=== PATIENT | female | born 1990 | race Two or more races ===

== ENCOUNTER 2019-05-13 22:42 | Emergency (ER) | payer MEDICAID ==
[~2019-05-13] VITALS: Ht 157.5 cm; Wt 74.8 kg
--- NOTE | 2019-05-13 23:12 | NUR ---
ED Nurse Note: Pt walked in c/o R fourth toe pain, pt reports she hit her toe really hard on the wall this moring. cms intact, cap refill <3sec. noted bruising and tenderness on the toe, will cont monitor.
[2019-05-14] MEDS ORDERED: IBUPROFEN600 MG ORAL (00:05)
[2019-05-14] MEDS ORDERED: HYDROCODON-ACE1 EA15 ORAL (00:05)
--- NOTE | 2019-05-14 00:05 | Emergency Room Report ---
History of Present Illness General Chief Complaint: Lower Extremity Injury Source: Patient Present Illness HPI This is a 28-year-old female with no past medical history. She presents with chief complaint of toe pain. She was in a lara to go to work today and she stopped her toe against the wall. It was hurting all day at work. When she went home she noticed her right fourth toe is black and blue. Worse with walking. Better with rest. Pain is throbbing in nature. 8 out of 10. Denies any other complaint. No other injury. Allergies: Coded Allergies: No Known Allergies (Unverified , 05/13/19) Patient History Past Medical History: see triage record, old chart reviewed Past Surgical History: none Pertinent Family History: none Social History: Denies: smoking Last Menstrual Period: 05-02-2019 Now: No Immunizations: other Reviewed Nursing Documentation: PMH: Agreed; PSxH: Agreed Nursing Documentation-PMH Past Medical History: No Stated History Review of Systems Eye: Denies: eye pain, blurred vision ENT: Denies: ear pain, nose congestion, throat swelling Respiratory: Denies: cough, shortness of breath Cardiovascular: Denies: chest pain, palpitations Gastrointestinal: Denies: abdominal pain, diarrhea, nausea, vomiting Musculoskeletal: Reports: joint pain; Denies: back pain Skin: Denies: rash Neurological: Denies: headache, numbness Endocrine: Denies: increased thirst, increased urine Hematologic/Lymphatic: Denies: easy bruising All Other Systems: negative except mentioned in HPI Physical Exam Vital Signs Date Time Temp Pulse Resp B/P (MAP) Pulse Ox O2 Delivery O2 Flow Rate FiO2 05/13/19 23:02 98.1 81 18 113/70 (84) 97 Room Air vitals normal Sp02 EP Interpretation: reviewed, normal General Appearance: well appearing, no apparent distress, alert Head: normocephalic, atraumatic Eyes: bilateral eye PERRL, bilateral eye EOMI ENT: hearing grossly normal, normal pharynx Neck: full range of motion, supple, no meningismus Respiratory: chest non-tender, lungs clear, normal breath sounds Cardiovascular #1: regular rate, rhythm, no murmur Gastrointestinal: normal bowel sounds, non tender, no mass, no organomegaly, no bruit, non-distended Musculoskeletal: back normal, gait/station normal, normal range of motion, other - Right fourth toe: Tender to palpation. Ecchymosis distally. Psychiatric: mood/affect normal Procedures Splinting Splinting : Consent: Verbal Location: Right fourth toe Hand-Made Type: Nawaf taping Pre-Proc Neuro Vasc Exam: normal Post-Proc Neuro Vasc Exam: normal Patient Tolerated: Well Complications: None Medical Decision Making Diagnostic Impression: Primary Impression: Toe fracture, right Qualified Codes: S92.911A - Unspecified fracture of right toe(s), initial encounter for closed fracture ER Course This patient presents with a fourth toe fracture. No dislocation. Will discharge home. Other X-Ray Diagnostic Results Other X-Ray Diagnostic Results : X-Ray ordered: xrays fourth toe # of Views/Limited Vs Complete: 3 View Indication: Pain EP Interpretation: Yes Interpretation: no dislocation, no soft tissue swelling, other - nondisplaced frx of 4th phalanx Impression: Other - Toe frx Electronically Signed by: Rambo Dia MD Last Vital Signs Date Time Temp Pulse Resp B/P (MAP) Pulse Ox O2 Delivery O2 Flow Rate FiO2 05/13/19 23:02 98.1 81 18 113/70 (84) 97 Room Air Status: improved Disposition: HOME, SELF-CARE Condition: Stable Scripts Ibuprofen* (MOTRIN*) 600 Mg Tablet 600 MG ORAL THREE TIMES A DAY, #30 TAB 0 Refills Prov: Rambo Dia MD 05/14/19 Hydrocodone/Acetaminophen 5-325* (HYDROCODONE/ACETAMINOPHEN 5-325*) 1 Each Tablet 1 TAB ORAL Q6H PRN for For Pain, #10 TAB 0 Refills Prov: Rambo Dia MD 05/14/19 Referrals: NOT CHOSEN IPA/,REFERRING (PCP) Additional Instructions: Elevate foot. Ice pack to the area. Follow-up with your doctor in 7 days. Return if worse. Rambo Dia MD May 14, 2019 00:05
[2019-05-14 00:10] VITALS: BP 108/67
--- NOTE | 2019-05-14 00:10 | NUR ---
ED Nurse Note: pt cleared to be d/c per ERMD, pt discharge and aftercare instruction provided w/ prescription, pt education done via discussion and handout, pt advised to follow up with pcp or return to ed if changes in condition, pt verbalized understanding and agrees with plan, vss, ambulatory w/ steady gait, left w/ all belongings.
--- NOTE | 2019-05-14 11:53 | Diagnostic Imaging Report ---
Indication: Pain in right third fourth and fifth toes after trauma Technique: 3 views of the right toes Comparison: none Findings: No acute fractures. No dislocations. The joint spaces are preserved. Impression: Negative
== END 2019-05-14 00:10 | disposition home or self-care (01) ==
LOC: EMR 23:33
DX: S92.911A Unspecified fracture of right toe(s), initial encounter for closed fracture (principal); W22.8XXA Striking against or struck by other objects, initial encounter; Y92.9 Unspecified place or not applicable
CPT/HCPCS: 99283